=== PATIENT | male | born 1960 | race Caucasian/White ===

== ENCOUNTER 2018-12-10 06:31 | Day surgery (SDC) | payer BC ==
[2018-12-10] MEDS ORDERED: PROPOFOL 40 ML (08:12)
[2018-12-10] MEDS ORDERED: LIDOCAINE 2% (SDV) 5 ML INJ (08:12)
[2018-12-10] MEDS ORDERED: DIPHENHYDRAMINE 50 MG INJ IV (08:30)
[2018-12-10] MEDS ORDERED: ACETAMINOPHEN 1000MG/100ML IV 100 ML IVPB (08:30)
[2018-12-10] MEDS ORDERED: ONDANSETRON 4 MG INJ IV (08:30)
== END 2018-12-10 12:12 | disposition home or self-care (01) ==
LOC: GIL 06:31
DX: Z12.11 Encounter for screening for malignant neoplasm of colon (principal); K64.8 Other hemorrhoids; K57.30 Diverticulosis of large intestine without perforation or abscess without bleeding; I10 Essential (primary) hypertension; E11.9 Type 2 diabetes mellitus without complications
CPT/HCPCS: 45378; 82962